=== PATIENT | male | born 2000 | race American Indian/Alaskan Native ===

== ENCOUNTER 2019-03-03 20:53 | Emergency (ER) | payer SELFPAY ==
--- NOTE | 2019-03-03 21:55 | Event Note ---
ED Screening Note Date of service: 03/03/19 Time: 21:54 ED Screening Note: 18 y old male presents with buttock abscess x 4 days states puss d/c This initial assessment/diagnostic orders/clinical plan/treatment(s) is/are subject to change based on patients health status, clinical progression and re- assessment by fellow clinical providers in the ED. Further treatment and workup at subsequent clinical providers discretion. Patient/guardian urged not to elope from the ED as their condition may be serious if not clinically assessed and managed. Initial orders include: acc eval ID
[2019-03-04] MEDS ORDERED: oxyCODONE /ACETAMINOPHEN 5-325MG TAB PO ONE (00:23)
[2019-03-04] MEDS ORDERED: ONDANSETRON 4 MG ODT TAB PO ONE (00:23)
[2019-03-04] MEDS ORDERED: SULFAMETHOXAZOLE/TRIMETHOPRIM 800/160MG DS TAB PO ONE (00:23)
[2019-03-04] MEDS ORDERED: LIDOCAINE-MPF (1%) 10 MG/1 ML VIAL 5 ML INFILTRATI ONE (00:23)
[2019-03-04] MEDS ORDERED: CLINDAMYCIN 300 MG CAP PO ONE (00:24)
[2019-03-04] MEDS ORDERED: IBUPROFEN 600 MG TAB PO ONE (00:24)
--- NOTE | 2019-03-04 02:01 | Emergency Department Report ---
ED General Adult HPI - General Chief complaint: Skin/Abscess/Foreign Body Stated complaint: INSECT BITE Source: patient Mode of arrival: Ambulatory Limitations: No Limitations - History of Present Illness Initial comments: Patient is a 18-year-old [place] male with no past medical history who presents to the ED with content of acute onset persistent painful swelling fluctuant maculopapular erythematous rash in the right gluteal cleft for the last 5 days. Patient states that the last 2 days the pain and the swelling have worsened and that prior to arrival in the ED the rash started draining thick purulent malodorous discharge. Patient states that he is not been able to sleep because of severe pain. Patient denies dizziness, fever, chills, nausea, vomiting, numbness and tingling or weakness of lower extremities bilaterally, low back pain, urinary or bowel incontinence. MD Complaint: right gluteal rash -: Sudden, days(s) (5) Location: buttocks (right gluteal cleft) Radiation: non-radiation Severity scale (0 -10): 10 Quality: aching, sharp Consistency: constant Improves with: none Worsens with: none Associated Symptoms: denies other symptoms, rash (swollen erythematous fluctuant papillar rash). denies: confusion, chest pain, cough, diaphoresis, fever/chills, headaches, loss of appetite, malaise, nausea/vomiting, seizure Treatments Prior to Arrival: none - Related Data Home Medications Medication Instructions Recorded Confirmed Last Taken Albuterol Sulfate [Proventil HFA] PRN 03/06/13 03/06/13 Unknown Previous Rx's Medication Instructions Recorded Last Taken Type Acetaminophen/Codeine [Tylenol 1 tab PO Q6H PRN #12 tab 03/04/19 Unknown Rx /Codeine # 3 tab] Clindamycin [Clindamycin CAP] 300 mg PO Q8HR #60 capsule 03/04/19 Unknown Rx Ibuprofen [Motrin] 800 mg PO Q8HR PRN #24 tablet 03/04/19 Unknown Rx Sulfamethoxazole/Trimethoprim 1 each PO Q12H #20 tablet 03/04/19 Unknown Rx [Bactrim DS TAB] Allergies Allergy/AdvReac Type Severity Reaction Status Date / Time No Known Allergies Allergy Unverified 03/06/13 21:29 ED Review of Systems ROS: Stated complaint: INSECT BITE Other details as noted in HPI Constitutional: denies: chills, fever Eyes: denies: eye pain, eye discharge, vision change ENT: denies: ear pain, throat pain Respiratory: denies: cough, shortness of breath, wheezing Cardiovascular: denies: chest pain, palpitations Endocrine: no symptoms reported Gastrointestinal: denies: abdominal pain, nausea, diarrhea Genitourinary: denies: urgency, dysuria Musculoskeletal: denies: back pain, joint swelling, arthralgia Skin: rash (swollen painful erythematous maculopapular fluctuant rash on right gluteal cleft), change in color. denies: lesions Neurological: denies: headache, weakness, paresthesias Psychiatric: denies: anxiety, depression Hematological/Lymphatic: denies: easy bleeding, easy bruising ED Past Medical Hx - Past Medical History Previous Medical History?: Yes Hx Asthma: Yes - Surgical History Past Surgical History?: No - Social History Smoking Status: Never Smoker Substance Use Type: None - Medications Home Medications: Home Medications Medication Instructions Recorded Confirmed Last Taken Type Albuterol Sulfate [Proventil HFA] PRN 03/06/13 03/06/13 Unknown History Acetaminophen/Codeine [Tylenol 1 tab PO Q6H PRN #12 tab 03/04/19 Unknown Rx /Codeine # 3 tab] Clindamycin [Clindamycin CAP] 300 mg PO Q8HR #60 capsule 03/04/19 Unknown Rx Ibuprofen [Motrin] 800 mg PO Q8HR PRN #24 tablet 03/04/19 Unknown Rx Sulfamethoxazole/Trimethoprim 1 each PO Q12H #20 tablet 03/04/19 Unknown Rx [Bactrim DS TAB] ED Physical Exam - General Limitations: No Limitations General appearance: alert, in no apparent distress - Head Head exam: Present: atraumatic, normocephalic, normal inspection - Eye Eye exam: Present: normal appearance, PERRL Pupils: Present: normal accommodation - ENT ENT exam: Present: normal exam, normal orophraynx, mucous membranes moist, TM's normal bilaterally, normal external ear exam - Neck Neck exam: Present: normal inspection, full ROM. Absent: tenderness, lymphadenopathy - Respiratory Respiratory exam: Present: normal lung sounds bilaterally. Absent: respiratory distress, wheezes, rhonchi, stridor, chest wall tenderness, accessory muscle use , decreased breath sounds - Cardiovascular Cardiovascular Exam: Present: regular rate, normal rhythm, normal heart sounds. Absent: systolic murmur, diastolic murmur, rubs, gallop - GI/Abdominal GI/Abdominal exam: Present: soft, normal bowel sounds. Absent: tenderness, hyperactive bowel sounds, hypoactive bowel sounds, organomegaly, mass - Rectal Rectal exam: Present: tenderness (swelling, fluctuant, severely tender, maculopapular erythematous rash with purulent discharge on right gluteal cleft) - Extremities Exam Extremities exam: Present: normal inspection, full ROM, normal capillary refill. Absent: pedal edema, joint swelling - Back Exam Back exam: Present: normal inspection, full ROM. Absent: tenderness, muscle spasm - Neurological Exam Neurological exam: Present: alert, oriented X3, CN II-XII intact, normal gait, reflexes normal - Psychiatric Psychiatric exam: Present: normal affect, normal mood - Skin Skin exam: Present: warm, dry, intact, rash (swelling erythematous maculopapular fluctuant rash on right gluteal cleft with malodorous purulent discharge), erythema ED Course Vital Signs 03/03/19 03/04/19 20:56 00:43 Temperature 98.5 F Pulse Rate 92 H Respiratory 18 20 Rate Blood Pressure 144/88 O2 Sat by Pulse 98 Oximetry - I & D Right Buttocks Type of Procedure: Simple Site: right gluteal cleft Blade Size: 11 I & D Procedure: betadine prep, sterile drapes applied, sterile dressing applied, gauze wick placed Progress: Patient elected the procedure well. Patient was discharged home on medications including antibiotics and pain medication and was advised to return to the ED in 2 days for wound recheck and packing removal. Patient was otherwise advised to follow-up with his primary care physician in 7-10 days for reevaluation. Patient was also advised return to the ED immediately if symptoms get worse. ED Medical Decision Making - Medical Decision Making This is a 18-year-old male who presented to the ED with painful swollen erythematous maculopapular fluctuant rash with purulent discharge on the right luteal cleft. Patient was treated in the ED with pain medications, also given oral antibiotics by mouth. The swollen fluctuant rash was incised and drained per protocol and the patient tolerated the procedure well. The wound was cleaned, and thoroughly debrided and a iodoform packing placed. The wound was then dressed appropriately with 4 x 4 gauzes and Tegaderm. Patient was discharged home on antibiotics and pain medications and was advised to return to the ED in 2 days for wound recheck, otherwise return to the ED immediately if symptoms get worse. Patient was also advised to follow-up with his primary care physician in 7-10 days for reevaluation. - Differential Diagnosis cellulitis; folliculitis; abscess Critical care attestation.: If time is entered above; I have spent that time in minutes in the direct care of this critically ill patient, excluding procedure time. ED Disposition Clinical Impression: Cutaneous abscess of buttock, Cellulitis of buttock, right, Acute folliculitis Disposition: TO HOME OR SELFCARE Is pt being admited?: No Does the pt Need Aspirin: No Condition: Stable Instructions: Abscess (ED), Cellulitis (ED), Folliculitis (ED) Additional Instructions: Take medications with food, drink plenty of fluids and follow-up with your primary care physician in 7-10 days for reevaluation. Return to the ED immediately if symptoms get worse. Otherwise return to the ED in 2 days for wound recheck. Prescriptions: Sulfamethoxazole/Trimethoprim [Bactrim DS TAB] 1 each PO Q12H #20 tablet Clindamycin [Clindamycin CAP] 300 mg PO Q8HR #60 capsule Ibuprofen [Motrin] 800 mg PO Q8HR PRN #24 tablet PRN Reason: Pain , Severe (7-10) Acetaminophen/Codeine [Tylenol /Codeine # 3 tab] 1 tab PO Q6H PRN #12 tab PRN Reason: Pain , Severe (7-10) Referrals: [facility] [Outside] - 3-5 Days Forms: Work/School Release Form(ED) Time of Disposition: 02:05 Print Language: K[place]
[2019-03-04 02:40] VITALS: BP 116/76
== END 2019-03-04 02:00 | disposition home or self-care (01) ==
LOC: ED 20:53
DX: L02.31 Cutaneous abscess of buttock (principal); L03.317 Cellulitis of buttock; L73.9 Follicular disorder, unspecified; J45.909 Unspecified asthma, uncomplicated
CPT/HCPCS: Q0162

== ENCOUNTER 2019-03-06 18:43 | Emergency (ER) | payer SELFPAY ==
--- NOTE | 2019-03-06 20:29 | Event Note ---
ED Screening Note Date of service: 03/06/19 Time: 20:27 ED Screening Note: Pt presents for wound recheck x today abscess drained here in ED 03/03/18--wound on buttocks states area still painful, but improved states compliance with antibiotics denies fever/chills/sweats This initial assessment/diagnostic orders/clinical plan/treatment(s) is/are subject to change based on patients health status, clinical progression and re- assessment by fellow clinical providers in the ED. Further treatment and workup at subsequent clinical providers discretion. Patient/guardian urged not to elope from the ED as their condition may be serious if not clinically assessed and managed. Initial orders include:
--- NOTE | 2019-03-07 00:44 | Emergency Department Report ---
ED General Adult HPI - General Chief complaint: Wound/Laceration Stated complaint: REMOVAL OF PACKAGING Time Seen by Provider: 03/06/19 20:26 Source: patient Mode of arrival: Ambulatory Limitations: No Limitations - History of Present Illness Initial comments: Patient is a 18-year-old, white male with no past medical history presents to the ED for wound recheck and packing removal following an I&D procedure of right gluteal cleft abscess 2 days ago. Patient states that he is currently taking the oral antibiotics that were previously prescribed. Patient denies fever, chills, nausea, vomiting, dizziness, numbness and tingling of lower extremities bilaterally, urinary or bowel incontinence and saddle paresthesia. MD Complaint: wound check and packing removal -: Sudden, days(s) (2) Location: buttocks Radiation: non-radiation Severity scale (0 -10): 4 Quality: aching, sharp Consistency: constant Improves with: none Worsens with: none Associated Symptoms: denies other symptoms, rash (left gluteal cleft draining painful abscess wound). denies: confusion, chest pain, cough, diaphoresis, fever/chills, headaches, loss of appetite, malaise, nausea/vomiting, seizure, shortness of breath, syncope, weakness Treatments Prior to Arrival: none - Related Data Home Medications Medication Instructions Recorded Confirmed Last Taken Albuterol Sulfate [Proventil HFA] PRN 03/06/13 03/06/13 Unknown Previous Rx's Medication Instructions Recorded Last Taken Type Acetaminophen/Codeine [Tylenol 1 tab PO Q6H PRN #12 tab 03/04/19 Unknown Rx /Codeine # 3 tab] Clindamycin [Clindamycin CAP] 300 mg PO Q8HR #60 capsule 03/04/19 Unknown Rx Ibuprofen [Motrin] 800 mg PO Q8HR PRN #24 tablet 03/04/19 Unknown Rx Sulfamethoxazole/Trimethoprim 1 each PO Q12H #20 tablet 03/04/19 Unknown Rx [Bactrim DS TAB] traMADoL [Ultram] 50 mg PO Q6HR PRN #12 tablet 03/07/19 Unknown Rx Allergies Allergy/AdvReac Type Severity Reaction Status Date / Time No Known Allergies Allergy Unverified 03/06/13 21:29 ED Review of Systems ROS: Stated complaint: REMOVAL OF PACKAGING Other details as noted in HPI Constitutional: denies: chills, fever Eyes: denies: eye pain, eye discharge, vision change ENT: denies: ear pain, throat pain Respiratory: denies: cough, shortness of breath, wheezing Cardiovascular: denies: chest pain, palpitations Endocrine: no symptoms reported Gastrointestinal: denies: abdominal pain, nausea, diarrhea Genitourinary: denies: urgency, dysuria Musculoskeletal: denies: back pain, joint swelling, arthralgia Skin: rash (draining painful right gluteal cleft abscess wound). denies: lesions, change in color, change in hair/nails, pruritus Neurological: denies: headache, weakness, paresthesias Psychiatric: denies: anxiety, depression Hematological/Lymphatic: denies: easy bleeding, easy bruising ED Past Medical Hx - Past Medical History Previous Medical History?: Yes Hx Asthma: Yes - Surgical History Past Surgical History?: No - Social History Smoking Status: Never Smoker - Medications Home Medications: Home Medications Medication Instructions Recorded Confirmed Last Taken Type Albuterol Sulfate [Proventil HFA] PRN 03/06/13 03/06/13 Unknown History Acetaminophen/Codeine [Tylenol 1 tab PO Q6H PRN #12 tab 03/04/19 Unknown Rx /Codeine # 3 tab] Clindamycin [Clindamycin CAP] 300 mg PO Q8HR #60 capsule 03/04/19 Unknown Rx Ibuprofen [Motrin] 800 mg PO Q8HR PRN #24 tablet 03/04/19 Unknown Rx Sulfamethoxazole/Trimethoprim 1 each PO Q12H #20 tablet 03/04/19 Unknown Rx [Bactrim DS TAB] traMADoL [Ultram] 50 mg PO Q6HR PRN #12 tablet 03/07/19 Unknown Rx ED Physical Exam - General Limitations: No Limitations General appearance: alert, in no apparent distress - Head Head exam: Present: atraumatic, normocephalic, normal inspection - Eye Eye exam: Present: normal appearance, PERRL, EOMI Pupils: Present: normal accommodation - ENT ENT exam: Present: normal exam, normal orophraynx, mucous membranes moist, TM's normal bilaterally, normal external ear exam - Neck Neck exam: Present: normal inspection, full ROM - Respiratory Respiratory exam: Present: normal lung sounds bilaterally. Absent: respiratory distress, wheezes, chest wall tenderness - Cardiovascular Cardiovascular Exam: Present: regular rate, normal rhythm, normal heart sounds. Absent: systolic murmur, diastolic murmur, rubs, gallop - GI/Abdominal GI/Abdominal exam: Present: soft, normal bowel sounds. Absent: tenderness, guarding, hyperactive bowel sounds, hypoactive bowel sounds - Extremities Exam Extremities exam: Present: normal inspection, full ROM, normal capillary refill - Back Exam Back exam: Present: normal inspection, full ROM. Absent: tenderness, CVA tenderness (R), CVA tenderness (L), muscle spasm, vertebral tenderness - Neurological Exam Neurological exam: Present: alert, oriented X3, CN II-XII intact, normal gait, reflexes normal - Psychiatric Psychiatric exam: Present: normal affect, normal mood - Skin Skin exam: Present: warm, dry, intact, normal color, rash (moderately tender draining right gluteal cleft abscess wound with iodoform packing in place.) ED Course Vital Signs 03/06/19 03/06/19 18:56 20:26 Temperature 97.7 F 97.7 F Pulse Rate 73 73 Respiratory 18 18 Rate Blood Pressure 148/72 148/72 O2 Sat by Pulse 99 99 Oximetry ED Medical Decision Making - Medical Decision Making This is a 18-year-old male who presented to the ED for gluteal cleft abscess wound check and packing removal following an I&D procedure 2 days ago. In the ED, patient is alert and oriented 3 and is not in distress. The iodoform packing was successfully removed from the wound, and the wound was debrided thoroughly with normal saline and 4 x 4 gauze applied with Tegaderm. Patient was discharged home and advised to continue taking the previously prescribed antibiotics and to follow up with his primary care physician in 7-10 days for reevaluation. Patient was also advised to return to the ED immediately if symptoms get worse. - Differential Diagnosis abscess wound; cellulitis; folliculitis Critical care attestation.: If time is entered above; I have spent that time in minutes in the direct care of this critically ill patient, excluding procedure time. ED Disposition Clinical Impression: Cutaneous abscess of buttock, Abscess packing removal Disposition: TO HOME OR SELFCARE Is pt being admited?: No Does the pt Need Aspirin: No Condition: Stable Instructions: Abscess (ED) Additional Instructions: Continue taking the previously prescribed antibiotics to the and period follow- up with your primary care physician in 7-10 days for reevaluation. Return to the ED immediately if symptoms get worse. Prescriptions: traMADoL [Ultram] 50 mg PO Q6HR PRN #12 tablet PRN Reason: Pain Referrals: KATE MCCONNELL MD [Staff Physician] - 7-10 days Time of Disposition: 00:45 Print Language: POLISH
[2019-03-07 01:46] VITALS: BP 122/68
== END 2019-03-07 01:10 | disposition home or self-care (01) ==
LOC: ED 18:43
DX: L02.31 Cutaneous abscess of buttock (principal); J45.909 Unspecified asthma, uncomplicated; Z79.899 Other long term (current) drug therapy
CPT/HCPCS: 99282